=== PATIENT | female | born 1945 ===

== ENCOUNTER 2019-06-02 20:47 | Emergency (ER) | payer SELFPAY ==
[~2019-06-02] VITALS: Ht 167.6 cm; Wt 62.5 kg
[2019-06-02 20:58] VITALS: BP 184/73; PULSE 104; RESP 18; Ht 167.6 cm; Wt 62.5 kg
== END 2019-06-02 22:35 | disposition home or self-care (01) ==
LOC: E/R 20:47
DX: S06.0X0A Concussion without loss of consciousness, initial encounter (principal); W01.198A Fall on same level from slipping, tripping and stumbling with subsequent striking against other object, initial encounter; Y92.9 Unspecified place or not applicable
CPT/HCPCS: 70450